=== PATIENT | female | born 1985 | race Caucasian/White ===

== ENCOUNTER 2018-07-25 15:49 | Emergency (ER) | payer MEDICAID ==
[~2018-07-25] VITALS: Wt 88.3 kg
[2018-07-25 16:02] VITALS: BP 132/79; PULSE 96; RESP 18
[2018-07-25] MEDS ORDERED: ACETAMINOPHEN 500 MG TAB PO STA (17:00)
[2018-07-25] MEDS ORDERED: ACET500C5 PO (18:52)
--- NOTE | 2018-07-25 19:03 | ERD ---
ER Documentation Chief Complaint Chief Complaint AP X 4 DAYS HPI Patient is a 33-year-old female with no past medical history presents to the ER for concerns of pelvic pain for the last two years. Patient states her pain comes and goes. Patient states her pain started after she got "copper toxicity" 4 years ago after she had her copper IUD removed. She states that she also has "pinched nerve" due to the "copper toxicity." Patient denies any fevers, chills, nausea, vomiting or upper abdominal pain. She denies any chest pain or shortness of breath. She denies any dysuria, frequency, urgency or hematuria. Patient denies any vaginal bleeding or vaginal discharge. She has not taken any medication for pain. Last menstrual period was 1 month ago. Patient requesting pelvic ultrasound. ROS All systems reviewed and are negative except as per history of present illness. Medications Home Meds Active Scripts Acetaminophen* (Tylophen*) 500 Mg Capsule, 1 CAP PO Q6H PRN for PAIN AND OR ELEVATED TEMP, #20 CAP Prov:ALFONSO ANN PA-C 07/25/18 Allergies Allergies: Coded Allergies: No Known Allergy (Unverified , 07/25/18) FmHx Family History: No diabetes Physical Exam Vitals Vital Signs Date Temp Pulse Resp B/P (MAP) Pulse Ox O2 O2 Flow FiO2 Time Delivery Rate 07/25/18 99.7 96 18 132/79 99 16:02 (96) Physical Exam GENERAL: Well-developed, well-nourished female. Appears in no acute distress. Speaking in full sentences. HEAD: Normocephalic, atraumatic. EYES: Pupils are equally reactive bilaterally. EOMs grossly intact. No conjunctival erythema. ENT: Moist mucous membranes. No uvula deviation. No kissing tonsils. NECK: Supple. No meningismus. Normal range of motion of the neck. LUNG: Clear to auscultation bilaterally. No rhonchi, wheezing, rales or coarse breath sounds. HEART: Regular rate and rhythm. No murmurs, rubs or gallops. ABDOMEN: Soft nondistended. Minimally tender to palpation in the suprapubic region.. Positive bowel sounds in all four quadrants. No rebound tenderness, no guarding. (-) McBurney's point tenderness. No CVA tenderness. EXTREMITIES: Equal pulses bilaterally. No peripheral clubbing, cyanosis or edema. No unilateral leg swelling. NEUROLOGIC: Alert and oriented. Moving all four extremities without any difficulty. Normal speech. Steady gait. SKIN: Normal color. Warm and dry. No rashes or lesions. Results 24 hrs Laboratory Tests Test 07/25/18 17:06 07/25/18 17:08 Bedside Urine pH (LAB) 6.0 Bedside Urine Protein (LAB) Negative Bedside Urine Glucose (UA) Negative Bedside Urine Ketones (LAB) Negative Bedside Urine Blood 2+ Bedside Urine Nitrite (LAB) Negative Bedside Urine Leukocyte Esterase (L Trace POC Beta HCG, Qualitative NEGATIVE Current Medications Medications Dose Sig/Louis Start Time Status Last (Trade) Ordered Route PRN Stop Time Admin Dose Reason Admin 1,000 mg ONCE STAT 07/25/18 DC 07/25/18 Acetaminophen PO 17:00 17:08 (Tylenol 07/25/18 17:03 Tab) Procedures/MDM ED COURSE: The patient was stable throughout ED course. I kept the patient and/or family informed of laboratory and diagnostic imaging results throughout the ED course. DIAGNOSTIC IMAGING: Read by radiologist. DIAGNOSTIC IMAGING REPORT Patient: ORALIA OCHOA : 1985 Age: 33 Sex: F MR #: [id number] DOS: 07/25/18 1700 Ordering MD: ALFONSO ANN PA-C Location: [facility] Room/Bed: PROCEDURE: US Pelvis. CLINICAL INDICATION: pelvic pain TECHNIQUE: Multiple sonographic images of the pelvis were obtained utilizing transabdominal and endovaginal technique. The images were reviewed on a PACS workstation. COMPARISON: None. FINDINGS: The uterus is normal in size with a normal appearance of the myometrium. The uterus measures 9.1 x 5.0 x 5.8 cm. The endometrial stripe is homogeneous in appearance and has the thickness of 11 mm. The ovaries are normal in size and echogenicity. The right ovary measures 3.8 x 1.9 x 3.1 cm. No Doppler flow is noted in the right ovary. The left ovary measures 3.4 x 2.2 x 3.0 cm. There is normal Doppler flow identified in the left ovary. No free fluid is present within the pelvis. RPTAT: AA IMPRESSION: No Doppler flow is identified within the right ovary. However the ovary is normal in size with no ovarian cysts or masses noted. Ovarian torsion is unlikely but cannot be excluded. Normal flow in the left ovary. .Zach Rodriguez MD, MD Date Time Electronically viewed and signed by .Zach Rodriguez MD, MD on 07/25/2018 18:41 .S/ CC: ALFONSO ANN PA-C [phone] PROCEDURES: None. MEDICATIONS GIVEN: Tylenol Patient tolerated medication well with no adverse reactions. Patient reported significant improvement in pain. Upon examination, patient had no pain and was requesting to leave. MEDICAL DECISION MAKING: This is a 33-year-old female who presents ER for concerns of intermittent pelvic pain for the last 2 years. Patient feels that her pain is due to "copper toxicity" secondary to IUD. Vital signs were reviewed. Patient was afebrile. Urine test was negative. UA showed trace leukocyte esterase and 2+ blood. Patient denies dysuria, frequency or hematuria at this we will defer treatment for UTI at this time. Pelvic ultrasound was obtained per patient's request. Pelvic ultrasound showed No Doppler flow is identified within the right ovary. However the ovary is normal in size with no ovarian cysts or masses noted. Ovarian torsion is unli aggie but cannot be excluded. Normal flow in the left ovary. Patient was given Tylenol for her pain. Upon examination, patient reported no pain. Patient requesting discharge paperwork as she wishes to go home. I doubt ovarian torsion at this time as patient has no pain. Patient's pain was well controlled with Tylenol and she did not require additional pain medications. Patient does not have intractable pain. US findings are likely positional. Discussed US findings with Dr. Cerrato supervising physician, who agreed patient's symptoms can be managed on outpatient basis. Patient was advised to return the ER for any new or worsening symptoms. At this time, patient's presentation is most consistent with chronic pelvic pain of unknown etiology. Low ectopic , true ovarian torsion, PID, tubo- ovarian abscess, fibroids, endometriosis, vulvovaginitis, nephrolithiasis, pyelonephritis, UTI, appendicitis, diverticulitis, bowel obstruction, perirectal abscess. Patient was nontoxic, [id number] prior to discharge. PRESCRIPTIONS: Tylenol DISCHARGE: At this time, patient is stable for discharge and outpatient management. I have instructed the patient to follow-up with his/her primary care physician in 1-2 days. I have discussed with the patient the possibility of needing to see a specialist for further workup and diagnostic studies if the pain persists. I have instructed the patient to promptly return to the ER at any time for any new or worsening symptoms including increased pain, nausea, vomiting, vaginal bleeding, weakness or fever. The patient and/or family expressed understanding of and agreement with this plan. All questions were answered. Home care instructions were provided. Disclaimer: Inadvertent spelling and grammatical errors are likely due to EHR/dictation software use and do not reflect on the overall quality of patient care. Also, please note that the electronic time recorded on this note does not necessarily reflect the actual time of the patient encounter. Departure Diagnosis: Primary Impression: Pelvic pain Condition: Fair Patient Instructions: Pelvic Pain, Unknown Cause Referrals: [facility] YOU HAVE RECEIVED A MEDICAL SCREENING EXAM AND THE RESULTS INDICATE THAT YOU DO NOT HAVE A CONDITION THAT REQUIRES URGENT TREATMENT IN THE EMERGENCY DEPARTMENT. FURTHER EVALUATION AND TREATMENT OF YOUR CONDITION CAN WAIT UNTIL YOU ARE SEEN IN YOUR DOCTORS OFFICE WITHIN THE NEXT 1-2 DAYS. IT IS YOUR RESPONSIBILITY TO MAKE AN APPOINTMENT FOR FOLOW-UP CARE. IF YOU HAVE A PRIMARY DOCTOR --you should call your primary doctor and schedule an appointment IF YOU DO NOT HAVE A PRIMARY DOCTOR YOU CAN CALL OUR PHYSICIAN REFERRAL HOTLINE AT IF YOU CAN NOT AFFORD TO SEE A PHYSICIAN YOU CAN CHOSE FROM THE FOLLOWING [facility] CLINICS [facility] [address] [facility] [address] [facility] [facility] [address] [facility] [address] [facility] [address] [facility] [facility]. [address] [facility]. [facility] YOU HAVE RECEIVED A MEDICAL SCREENING EXAM AND THE RESULTS INDICATE THAT YOU DO NOT HAVE A CONDITION THAT REQUIRES URGENT TREATMENT IN THE EMERGENCY DEPARTMENT. FURTHER EVALUATION AND TREATMENT OF YOUR CONDITION CAN WAIT UNTIL YOU ARE SEEN IN YOUR DOCTORS OFFICE WITHIN THE NEXT 1-2 DAYS. IT IS YOUR RESPONSIBILITY TO MAKE AN APPOINTMENT FOR FOLOW-UP CARE. IF YOU HAVE A PRIMARY DOCTOR --you should call your primary doctor and schedule and appointment IF YOU DO NOT HAVE A PRIMARY DOCTOR YOU CAN CALL OUR PHYSICIAN REFERRAL HOTLINE AT . IF YOU CAN NOT AFFORD TO SEE A PHYSICIAN YOU CAN CHOSE FROM THE FOLLOWING [facility] INSTITUTIONS: [facility] [address] [place] [address] [facility] [address] [place] [address] [facility] [address] [place] [address] [employer] [address] [facility] [address] [place] [address] OFFICE FAX NONA MANNING [address] [place] [address] [facility] [address] [place] [address] [address] [address] [facility], [address], [facility] [address] [address] [place] [address] [facility] [address] [place] [address] [address] [facility] [address] [address], [place] [address] [place] [address] [address] [facility]. [address], [place] [address] [address] [address] [place] [address] Additional Instructions: Follow up with OBGYN for further workup and management of your symptoms. Call your primary care doctor TOMORROW for an appointment during the next 1-2 days.See the doctor sooner or return here if your condition worsens before your appointment time. ALFONSO ANN PA-C Jul 25, 2018 19:03
== END 2018-07-25 19:10 | disposition home or self-care (01) ==
LOC: FTE 15:49
DX: R10.2 Pelvic and perineal pain (principal)
CPT/HCPCS: 76830; 76856; 81003; 81025; Z7502; Z7610